=== PATIENT | female | born 1970 | race Hispanic/Latino ===

== ENCOUNTER 2023-11-06 12:16 | Emergency (ER) | payer OTHER, SELFPAY ==
[2023-11-06] VITALS (29 sets, daily range): BP systolic 95–129; BP diastolic 46–87; PULSE 54–67; RESP 8–21; TEMP 36.4; O2SAT 89–100
--- NOTE | ~2023-11-06 | CT_ITS ---
EXAMINATION: CT abdomen pelvis w con INDICATION: Right flank pain TECHNIQUE: Computed tomographic images of the abdomen and pelvis were obtained after the administrati on of 100 cc of Omnipaque 350 intravenous contrast. The dose-length product (DLP) was 1271.42 mGy-cm. Automated exposure control and iterative reconstruction technique were employed. COMPARISON: None available FINDINGS: Minimal dependent atelectasis is present in the lung bases. The heart size is normal. The l iver is diffusely low in attenuation when compared with the spleen, consistent with hepatic steatosis . The spleen, pancreas, gallbladder, and adrenal glands are normal. The right kidney is unremarkable. Cysts of the left kidney measure up to 1.4 cm No stones are identified in the kidneys, ureters, or b ladder. No hydronephrosis or hydroureter. The appendix is normal. No pathologically enlarged abdomina l or pelvic lymph nodes are identified. No free intraperitoneal gas or evidence of bowel obstruction. There is a 2.6 x 1.5 cm greater than fluid attenuation which appears to involve the left vaginal wal l, likely Kacie duct cyst. IMPRESSION: 1. No CT correlate for the patient's symptoms. 2. Diffuse hepatic steatosis. Reviewed, dictated and finalized at location F. [employer]
[2023-11-06 12:41] LABS: Basophils Absolute Auto 0.1 K/mm3 (0.0-0.1); Basophils Percent Auto 0.6 % (0.2-1.2); Eosinophils Absolute Auto 0.1 K/mm3 (0-0.3); Hematocrit 45.6 % (37.0-47.0); Hemoglobin 14.9 g/dL (12.0-15.0); Immature Granulocyte Absolute 0.03 K/mm3 (0.00-0.031); Immature Granulocyte Percent A 0.3 % (0-0.5); Lymphocytes Absolute Auto 4.75 K/mm3 (0.9-3.2); Lymphocytes Percent Auto 48.1 % (18.3-44.2); Mean Corpuscular HGB Conc 32.7 g/dl (32-36); Mean Corpuscular Hemoglobin 28.8 pg (26-34); Monocytes Absolute Auto 0.6 K/mm3 (0.1-0.6); Monocytes Percent Auto 5.6 % (2.6-8.5); Neutrophils Absolute Auto 4.4 K/mm3 (1.3-6.7); Neutrophils Percent Auto 44.4 % (45.5-73.1); Platelet Count Result 288 k/mm3 (150-375); Red Blood Count 5.18 M/mm3 (4.2-5.4); Red Cell Distribution Width 13.1 % (11.5-14.5); White Blood Count 9.9 K/mm3 (4.5-10.0)
[2023-11-06 12:51] LABS: Alanine Aminotransferase 81 U/L (6-35); Albumin Level 4.7 g/dL (3.5-5.1); Alkaline Phosphatase 107 U/L (38-126); Anion Gap 13 mmol/L (8-16); Aspartate Amino Transferase 58 U/L (14-36); Bilirubin,Total 0.8 mg/dL (0.2-1.3); Blood Urea Nitrogen 14 mg/dL (7-17); Calcium 9.8 mg/dL (8.4-10.2); Carbon Dioxide 21 mmol/L (22-30); Chloride 106 mmol/L (98-107); Estimated CRCL calculation 123 ml/min; Estimated Glomerular Filt Rate > 60; Glucose 102 mg/dL (65-110); Potassium 4.1 mmol/L (3.4-5.0); Sodium 140 mmol/L (137-145)
--- NOTE | 2023-11-06 13:34 | ED.BACK ---
HPI - Back Pain/Injury General Chief Complaint: Back Pain/Injury Stated Complaint: back pain Time Seen by Provider: 11/06/23 12:45 Source: patient and family Mode of arrival: wheelchair Limitations: language barrier (using senior pharmacy technician) History of Present Illness HPI Narrative: This is a 53 year old female that presents to the ER for right sided back pain. Reports it started after lifting a heavy box yesterday. Reports right sided mid-low back pain. Worse with movement and relieved with rest. She has not taken anything for pain. Reports the pain radiates down her right leg. She also endorses some right low abdominal pain. Reports history of kidney stones. Denies fever, dysuria or hematuria. Related Data Allergies Allergy/AdvReac Type Severity Reaction Status Date / Time No Known Allergies Allergy Verified 11/06/23 12:38 Review of Systems Review of Systems: CONSTITUTIONAL: Denies fever GASTROINTESTINAL: Reports abdominal pain. Denies nausea, vomiting GENITOURINARY: Denies dysuria or hematuria. SKIN: Denies rash MUSCULOSKELETAL: Reports back pain, joint pain, and myalgia. NEUROLOGIC: Denies numbness, or weakness. All systems reviewed & are unremarkable except as noted in HPI and below PMFSH Past Medical History Medical History (Updated 11/06/23 @ 16:41 by Lia Kelley PA-C) No active medical problems Social History Social History (Updated 11/06/23 @ 13:38 by Lia Kelley PA-C) Substance use: never Exam Narrative: GENERAL: Well-appearing, well-nourished, and in no acute distress. HEAD: Normocephalic, atraumatic. EYES: EOMI. CHEST: Clear to auscultation. No respiratory distress. No wheezes rales or rhonchi HEART: Regular rate and rhythm. No murmur heard. Normal peripheral pulses. ABDOMEN: Soft, nondistended, normal active bowel sounds. Mild tenderness to palpation throughout the right lower quadrant, without guarding. No CVA tenderness BACK: Tender to palpation of the right thoracic and lumbar paraspinal musculature EXTREMITIES: Normal range of motion. No edema. Strength equal in bilateral lower extremities (5/5) SKIN: Warm, dry, no rash. NEURO: No focal deficits. Alert and oriented x3. PSYCH: Normal mood and affect Course Course Emergency Course: Patient and family updated on workup and agree with plan of care Vital Signs Vital signs: Vital Signs Temperature 97.6 F 11/06/23 12:17 Pulse Rate 64 11/06/23 12:17 Respiratory Rate 20 11/06/23 12:17 Blood Pressure 122/87 11/06/23 12:17 Pulse Oximetry 100 11/06/23 12:17 Oxygen Delivery Room Air 11/06/23 12:17 Temperature 97.6 F 11/06/23 12:17 Pulse Rate 66 11/06/23 15:00 Respiratory Rate 11 L 11/06/23 15:00 Blood Pressure 106/62 11/06/23 14:32 Pulse Oximetry 98 11/06/23 15:03 Oxygen Delivery Room Air 11/06/23 15:03 Oxygen Flow Rate 2 11/06/23 13:54 MDM - Back Pain/Injury MDM Narrative Medical decision making narrative: Patient presents to the ER for right sided mid-low back pain after lifting something heavy yesterday. Also reporting right sided low abdominal pain. She is afebrile and nontoxic appearing. She did have a dip in oxygen saturation to the high 80s after receiving pain medication. Was placed on 2L NC briefly, other bauer her vitals are stable. CBC without leukocytosis. Metabolic panel shows mild transaminitis. UA with evidence of infection. This will be sent for culture. Patient given first dose of antibiotics IV in the ED. CT abdomen/pelvis is without acute findings. Shows hepatic steatosis, likely cause for transaminitis. Patient and family updated on workup and agree with plan of care. She was given warnings to return to the ER Differential Diagnosis Differential diagnosis: Likely sciatica, strain of lumbar region, pyelonephritis and other (UTI, kidney stone) Lab Data Attestation: I reviewed the patient's lab results. 11/06/23 12:36 11/06/23 12:36 Labs: L
[2023-11-06] MEDS: ACETAMINOPHEN 500 MG TABLET 1000 MG PO (13:38)
[2023-11-06] MEDS: diazePAM INJ (*CRX) 10 MG/2 ML SYRINGE 5 MG IV PUSH (13:39)
[2023-11-06 15:15] LABS: Appearance Urine Clear (Clear); Bacteria Urine Rare /hpf; Bilirubin Urine Negative (Negative); Blood Urine Negative (Negative); Color Urine Yellow (Yellow); Glucose Urine UA Negative (Negative); Ketones Urine Negative (Negative); Leukocyte Esterase Ur 2+ LEU/UL (Negative); Nitrate Urine Negative (Negative); Non Pathogenic Casts 0-2; Protein Urine Negative (Negative); RBC Urine 0-2 /hpf (0-2); Specific Grav Ur 1.009 (1.001-1.035); Squamous Epithelial Cell Urine Few /hpf (Few); Urobilinogen Urine 0.2 mg/dL (<2.0)
[2023-11-06 15:20] LABS: Add Urine Microscopic? YES
[2023-11-06 16:08] LABS: Lipase 98 U/L (23-300)
== END 2023-11-06 17:03 | disposition home or self-care (01) ==
PROVIDERS: Emergency Medicine; Emergency Provider Physician Assistant; PCP Physician Assistant
DX: S39.012A Strain of muscle, fascia and tendon of lower back, initial encounter (principal); X50.0XXA Overexertion from strenuous movement or load, initial encounter; N39.0 Urinary tract infection, site not specified
CPT/HCPCS: 36415; 74177; 80053; 81001; 81025; 83690; 85025; 87077; 87086; 87088; 96365; 96375; 99284; A9270; J0696; J3360; Q9967

== ENCOUNTER 2024-05-10 02:00 | Day surgery (SDC) | payer OTHER, SELFPAY ==
[2024-05-01 14:04] VITALS: BMI 36.3
--- NOTE | 2024-05-09 13:08 | PC.NURSE ---
Pt called stating pt never received prep instructions. Pt has been on a clear liquid diet throughout the day. Arabic and [place] Citizen prep instructions re-emailed to daughter.
[2024-05-10 09:18] VITALS: BP 137/61; PULSE 58; RESP 20; TEMP 36.2; O2SAT 98; BMI 37.8
[2024-05-10] MEDS: LACTATED RINGERS 1,000 ML 150 ML IV CONT (09:26)
--- NOTE | 2024-05-10 09:53 | P.PNAN_ITS ---
Anes - Initial Pre Proc Eval Procedure: Operation Date: 05/10/24 10:30 Proposed Procedures p Screening Colonoscopy - Chivo Hoskins MD Date/Time: 05/10/24 09:53 Surgeon: Chivo Hoskins MD Pre Op Diagnosis: neoplasm screening Patient Data Age: 53 Gender: F Height: 1.6 m Weight: 97 kg Last Vital Signs Temp 97.2 F L 05/10/24 09:18 Pulse 58 L 05/10/24 09:18 Resp 20 05/10/24 09:18 BP 137/61 05/10/24 09:18 Pulse Ox 98 05/10/24 09:18 O2 Del Method Room Air 05/10/24 09:18 Allergies Allergy/AdvReac Type Severity Reaction Status Date / Time No Known Allergies Allergy Verified 05/10/24 09:17 Home Medications Medication Instructions Recorded Confirmed Type No Home Medications 05/10/24 05/10/24 History Patient hx anesthesia problems: none Family hx anesthesia problems: none Results Review: All pre-operative results and documents have been reviewed as part of the pre- operative evaluation. [facility] Past Medical History Medical History (Updated 11/07/23 @ 00:13 by Jocelin Busby) No active medical problems Social History Social History (Updated 11/06/23 @ 13:38 by Lia Kelley PA-C) Smoking status: Never smoker Substance use: never Living arrangements: with family Spiritual care concerns: No Anes - Eval Final PreProcedure Day of Procedure 05/10/24 09:53 Patient weight: obese Heart: regular rate and rhythm Lungs: clear to auscultation Airway: Mallampati scale class II Neurological: alert and oriented Last oral intake: >/= 8 hours ASA classification: II Emergent: no Anesthetic plan: proceed Anesthesia type and monitoring: general GIVS and standard monitoring Results Review: All pre-operative results and documents have been reviewed as part of the pre- operative evaluation. Informed Consent: The patient's anesthetic plan and its attendant risks and benefits were discussed with the patient/family/POA. Questions were solicited and answers provided to the satisfaction of the patient/family/POA.
--- NOTE | 2024-05-10 10:19 | PM.HPGS ---
History of Present Illness History of Present Illness Consent: Risks, benefits, and alternatives have been discussed and questions answered. Patient agrees to proceed with procedure. Chief complaint: neoplasm screening Narrative: Yamileth Costello is a 53 year old female here for first screening colonoscopy Review of Systems Review of Systems: All systems reviewed & are unremarkable except as noted in HPI and below PMFSH Past Medical History Medical History (Updated 05/10/24 @ 10:21 by Chivo Hoskins MD) Colon cancer screening No active medical problems Social History Social History (Updated 11/06/23 @ 13:38 by Lia Kelley PA-C) Smoking status: Never smoker Substance use: never Living arrangements: with family Spiritual care concerns: No Meds Home Medications and Allergies Home Medications Medication Instructions Recorded Confirmed Type No Home Medications 05/10/24 05/10/24 History Allergies Allergy/AdvReac Type Severity Reaction Status Date / Time No Known Allergies Allergy Verified 05/10/24 09:17 Vital Signs Vital Signs - 24 hr 05/10/24 09:18 Temperature 97.2 F L Pulse Rate 58 L Respiratory Rate 20 Blood Pressure 137/61 Pulse Oximetry 98 Oxygen Delivery Room Air Exam Const: General: comfortable and no acute distress HENMT: Face/Nose/Sinus: Normal nares present Eyes: General: appearance normal, both eyes and all related structures Neck: Neck: no JVD Resp: Auscultation: clear to auscultation bilaterally Cardio: Rate: regular rate Rhythm: regular rhythm GI: Inspection: non-distended GI Palp: Yes Soft to palpation Skin: General skin exam: normal color Neuro: General: gait normal Speech: normal speech Extrem: General: normal to inspection Psych: Mental Status: mental status grossly normal Assessment and Plan Assessment and plan (1) Colon cancer screening: Code(s): Z12.11 - Encounter for screening for malignant neoplasm of colon Status: Acute Assessment and Plan: colonoscopy
[2024-05-10 10:42] VITALS: BP 112/45; PULSE 60; RESP 23; O2SAT 98
[2024-05-10 10:52] VITALS: BP 110/67; PULSE 61; RESP 26; O2SAT 98
[2024-05-10 11:02] VITALS: BP 143/60; PULSE 53; RESP 17; O2SAT 98
== END 2024-05-10 11:11 | disposition home or self-care (01) ==
PROVIDERS: PCP Physician Assistant; Visit Provider Internal Medicine Gastroenterology
PROC: 0DJD8ZZ Inspection of Lower Intestinal Tract, Via Natural or Artificial Opening Endoscopic (ICD-10-PCS; CPT 45378; principal; 2024-05-10 10:30)
DX: Z12.11 Encounter for screening for malignant neoplasm of colon (principal); D12.3 Benign neoplasm of transverse colon; D12.4 Benign neoplasm of descending colon; K64.8 Other hemorrhoids; E66.9 Obesity, unspecified; Z68.37 Body mass index [BMI] 37.0-37.9, adult
CPT/HCPCS: 45385; 88305; J2704; J7120

== ENCOUNTER 2024-06-17 13:32 | Emergency (ER) | payer OTHER, SELFPAY ==
--- NOTE | ~2024-06-17 | XR_ITS ---
XR knee LT min 4V DATE: 06/17/2024 14:33 INDICATION: Fall 8 months ago with pain since then. Difficulty bearing weight. TECHNIQUE: 4 views COMPARISON: None FINDINGS: There is mild loss of height and slight periarticular spurring at the medial compartment duane int. There is periarticular spurring and subarticular cystic change of the patella. There is joint effusion. No fracture, dislocation, periosteal reaction or bone destruction or radiopaque intra-articular loose body is detected. IMPRESSION: Joint effusion Osteoarthritis at the medial and patellofemoral compartments Reviewed, dictated and finalized at location J.
[2024-06-17 13:36] VITALS: BP 126/81; PULSE 60; RESP 18; TEMP 36.6; O2SAT 97
--- NOTE | 2024-06-17 15:45 | ED.LOWEXIN ---
HPI - Extremity Injury (Lower) General Chief Complaint: Extremity Injury, Lower Stated Complaint: L knee pain Time Seen by Provider: 06/17/24 14:13 Source: patient Mode of arrival: ambulatory Limitations: language barrier (patient's family member is interpreting which she prefers) History of Present Illness HPI Narrative: This is a 53 year old female that presents to the ER for left knee pain. Reports ongoing over the last 8 months. No recent injuries. Pain is worse with weight bearing and ROM. Relieved with rest. Reports some swelling to the knee. Also reports she has had an itchy rash between her breasts. Denies fever, erythema, numbness or weakness. Related Data Allergies Allergy/AdvReac Type Severity Reaction Status Date / Time No Known Allergies Allergy Verified 06/17/24 14:08 Review of Systems Review of Systems: CONSTITUTIONAL: Denies fever SKIN: Reports rash and itching. MUSCULOSKELETAL: Reports joint pain, and myalgia. NEUROLOGIC: Denies numbness, or weakness. All systems reviewed & are unremarkable except as noted in HPI and below PMFSH Past Medical History Medical History (Updated 06/17/24 @ 15:46 by Lia Kelley PA-C) Colon cancer screening No active medical problems Social History Social History (Updated 11/06/23 @ 13:38 by Lia Kelley PA-C) Smoking status: Never smoker Substance use: never Living arrangements: with family Spiritual care concerns: No Exam Narrative: GENERAL: Well-appearing, well-nourished, and in no acute distress. HEAD: Normocephalic, atraumatic. EYES: EOMI. CHEST: Red, moist papular rash between the breasts EXTREMITIES: Normal range of motion. No erythema or warmth. Normal DP pulse. Normal sensation SKIN: Warm, dry NEURO: No focal deficits. Alert and oriented x3. PSYCH: Normal mood and affect Course Course Emergency Course: Patient agrees with plan of care Vital Signs Vital signs: Vital Signs Temperature 98 F 06/17/24 13:36 Pulse Rate 60 06/17/24 13:36 Respiratory Rate 18 06/17/24 13:36 Blood Pressure 126/81 06/17/24 13:36 Pulse Oximetry 97 06/17/24 13:36 Oxygen Delivery Room Air 06/17/24 13:36 Temperature 98 F 06/17/24 13:36 Pulse Rate 60 06/17/24 13:36 Respiratory Rate 18 06/17/24 13:36 Blood Pressure 126/81 06/17/24 13:36 Pulse Oximetry 97 06/17/24 13:36 Oxygen Delivery Room Air 06/17/24 13:36 MDM - Extremity Injury (Lower) MDM Narrative Medical decision making narrative: Patient presents to the emergency department for left knee pain. This is been ongoing for the last several months. No recent injuries or trauma. She is afebrile and nontoxic appearing. Mild edema noted about the knee. No erythema or warmth. Normal range of motion in the knee. Normal peripheral pulses. X-ray does show osteoarthritis. Placed in [place] wrap for comfort. She does report she has a walker at home. Patient also mentions an itchy rash between her breasts. This is consistent with candidal intertrigo. Patient will be started on clotrimazole. She is to follow up with Orthopedics and her PCP. She was given warnings to return to the ER Differential Diagnosis Differential diagnosis: Likely acute internal derangement of knee and other (osteoarthritis, candidal intertrigo) Imaging Data Radiologist's impression: ITS Impressions Knee X-Ray 06/17/24 15:10 IMPRESSION: Joint effusion Osteoarthritis at the medial and patellofemoral compartments Critical Care Time Critical Care Time Critical Care Time: No Discharge Plan Discharge Clinical Impression: Candidal intertrigo Knee pain, left Qualifiers: Chronicity: chronic Qualified Code(s): M25.562 - Pain in left knee Osteoarthritis Qualifiers: Osteoarthritis location: knee Osteoarthritis type: unspecified Laterality: left Qualified Code(s): M17.12 - Unilateral primary osteoarthritis, left knee Patient Disposition: Home, Self-Care
[2024-06-17] MEDS: KETOROLAC 30 MG/ML VIAL (*BKC) IM (16:10)
== END 2024-06-17 16:15 | disposition home or self-care (01) ==
PROVIDERS: Emergency Provider Physician Assistant; PCP Physician Assistant
DX: M25.562 Pain in left knee (principal); B37.2 Candidiasis of skin and nail; M17.12 Unilateral primary osteoarthritis, left knee
CPT/HCPCS: 73564; 96372; 99283; J1885